=== PATIENT | female | born 1965 | race Caucasian/White ===

== ENCOUNTER 2024-10-28 23:59 | Inpatient (IN) | payer OTHER, SELFPAY ==
[2024-10-28 18:17] VITALS: BP 151/96
[2024-10-28 18:33] LABS: % Basophils 0.5 % (0-2); % Eosinophils 0.2 % (0-6); % Immature Granulocytes 0.3 % (0-0.5); % Lymphocytes 12.4 % (20.5-51.1); % Monocytes 3.9 % (1.7-9.3); % Neutrophils 82.7 % (42.2-75.2); Absolute Basophils 0.1 10^3/uL (0-0.2); Absolute Lymphocytes 1.4 10^3/uL (1.2-3.4); Absolute Monocytes 0.4 10^3/uL (0.1-0.6); Absolute Neutrophils 9.2 10^3/uL (1.4-6.5); Hematocrit 42.8 % (37.0-47.0); Hemoglobin 15.3 g/dL (12.0-16.0); Mean Corp Hgb Conc. 35.7 g/dL (33.0-37.0); Mean Corpuscular Hgb 32.3 pg (27.0-31.0); Mean Corpuscular Volume 90.5 fL (81.0-99.0); Mean Platelet Volume 8.7 fL (7.4-10.4); Nucleated Red Blood Cells % 0 %; Platelet Count 219 10^3/uL (130-400); Red Blood Cell Count 4.73 10^6/uL (4.20-5.40); Red Cell Dist. Width 11.9 % (11.5-14.5); White Blood Cell Count 11.2 10^3/uL (4.8-10.8)
[2024-10-28 18:47] LABS: ALT (SGPT) 64 U/L (0-35); AST (SGOT) 65 U/L (14-36); Albumin 4.7 g/dl (3.5-5.0); Alkaline Phosphatase 138 U/L (38-126); Blood Urea Nitrogen 12 mg/dl (7-17); Calcium 9.4 mg/dl (8.4-10.2); Carbon Dioxide 19 mmol/L (22-30); Chloride 98 mmol/L (98-107); Glucose 364 mg/dl (70-99); Lipase 136 U/L (23-300); Potassium 4.4 mmol/L (3.5-5.1); Sodium 132 mmol/L (135-145); Total Bilirubin 0.8 mg/dl (0.2-1.3); Total Protein 7.4 g/dl (6.3-8.2); eGFR > 60.00
--- NOTE | 2024-10-28 19:53 | ED.GENMED ---
History of Present Illness
General
Chief Complaint: Abdominal Pain
Source: patient
Exam Limitations: none
Time Seen by Provider: 10/28/24 19:05
History of Present Illness
History of Present Illness:
This is a 59 year old female that comes in with c/o left sided abd pain. States that she has severe pain in the left lower abd and the center. States that this started at 1pm and has been constant. State that she had coffee and cookies and this
cause the pain to be severe. States that she has 2 normal BM's today. States that she feels like her urine is thick when it comes out. States that she is nauseated and vomiting once. Denies any fever, chills, chest pain, SOB, diarrhea, headache,
dizziness.
Past History
Past History
ED Past Medical History: None, NIDDM (II but states that she keeps forgetting to take her Metformin) and Other (Partial factor 5 Liden, renal calculus); Negative Asthma, HTN or Hypercholesterolemia
ED Past Surgical History: (X 2) and Urological (Ureteral stent, )
Social History
Tobacco: Non-smoker
Alcohol: Occasional (wine 1-2 glasses)
Personal:
Living: with family
Review of Systems
Review of Systems
All Other Systems: ROS reviewed and negative except as documented in HPI and ROS
Constitutional: Reports no symptoms; Denies fever or chills
EENT: Reports no symptoms
Respiratory: Reports no symptoms; Denies cough or trouble breathing
Cardiac: Reports no symptoms; Denies chest pain
ABD/GI: Reports abdominal pain (Left sided), nausea and vomiting; Denies diarrhea
: Reports other (urine feels Thick); Denies dysuria, frequency or urgency
Musculoskeletal: Reports no symptoms
Skin: Reports no symptoms
Neurological: Reports no symptoms; Denies dizzy or headache
Psychiatric: Reports no symptoms
Phy Exam
General Physical Exam
General Presentation: mild distress
General age: appears stated age
General Skin: warm and dry
General Habitus: normal
General Mental: alert
General Hydration: appears well hydrated
ENT Exam
ENT Exam: TM's normal, pharynx normal and neck supple
Eye Exam
Eye Exam: EOMI
Cardiovascular Exam
Cardiovascular Exam: regular rate/rhythm, no edema, no murmur and normal peripheral pulses
Pulmonary Exam
Pulmonary Exam: lungs clear, no respiratory distress, no rales, chest non tender, no crackles, no rhonchi, no wheezing and no cough
Gastrointestinal Exam
Gastrointestinal Exam: normal bowel sounds, soft, no organomegaly, no pulsatile mass, non distended and tender (Left sided tenderness with palpation)
Musculoskeletal Exam
Musculoskeletal Exam: full ROM and no edema
Skin Exam
Skin Exam: normal color, warm/dry, no rash and no petechia
Psychiatric Exam
Psychiatric Exam: normal mood/affect
Course
Orders/Labs/Results
Orders:
Orders
10/28/24 18:07
Electrocardiogram (*1) Urgent
Reason for Study: Abdominal Pain
EKG- Treatment ONCE
10/28/24 18:24
Complete Blood Count/With Diff Urgent
Comprehensive Metabolic Panel Urgent
Lipase Urgent
10/28/24 19:52
0.9% Sodium Chloride 1000 ml [Nss] 1,000 ml IV BOLUS
HYDROmorphone [Dilaudid] 0.5 mg IV NOW STA
Ketorolac [Toradol] 30 mg IV NOW STA
10/28/24 19:54
CT Abd/pelvis W Iv Cont Urgent
Comment:
Reason For Exam: Left sided abd pain
10/28/24 21:07
Urinalysis Reflex To Culture Urgent
Date Specimen was Collected: 10/28/24
Time Specimen was Collected: 21:02
Urine Microscopic Reflex Cult Urgent
Urine Culture Urgent
RAVINDRA Source: U
Specimen Description:
Date Specimen was Collected: 10/28/24
Time Specimen was Collected: 21:02
10/28/24 22:47
CefTRIAXone [Rocephin] 1,000 mg IV NOW STA
10/28/24 22:56
Acetaminophen [Tylenol] 1,000 mg PO NOW STA
10/28/24 23:08
METFORMIN HCl [Glucophage] 1,000 mg PO NOW STA
10/28/24 23:47
Admit/Transfer Patient As Directed
Co-Sign Provider:
Level of Care: Inpatient admission
Assign to:: IMU- Intermediate Care
Physician / Group: Shaquille
Diagnosis: Pyelonephritis, Sepsis
Reason for Hospitalization: Pyelonephritis, Sepsis
Expected length of stay greater than two midnights?: Yes
ELOS- Estimated Length of Stay in days: 3
I certify the patient meets the requirements for IP care: Yes
0.9% Sodium Chloride 1000 ml [Nss] 1,500 ml IV BOLUS
PRN Pain Medication Management As Directed
May give lesser potent ordered pain med per pt: Yes
preference::
Protocol:: Medication orders for pain may be administered in a
manner that supports deferring to patient preference
when the pt is:
- Requesting an ordered lesser potent pain medication.
Least to most potent pain medications are defined
as: acetaminophen < NSAID < tramadol < opioids
(morphine, oxycodone, hydromorphone).
- Requesting a lesser dose of the same medication IF
ORDERED.
- Requesting a less intrusive route of administration
if both routes are prescribed by the provider (PO <
IV).
10/28/24 23:48
Code Status As Directed
Resuscitation Status: Full Code
10/28/24 23:54
COVID-19 Antigen Urgent
Source: Nasal Swab
Lactic Acid Urgent
Influenza A+B Rapid Molecular Urgent
RAVINDRA Source: Nasal Swab
Specimen Description:
10/29/24 01:44
0.9% Sodium Chloride 1000 ml [Nss] 1,000 ml IV 150 mls/hr
Acetaminophen [Tylenol] 650 mg PO Q4HPRN PRN
Dextrose 50%-Water [Dextrose 50% Syringe] 12.5 grams IV [id number] PRN
Glucagon [GlucaGen] 1 mg IM PRN PRN
HYDROmorphone [Dilaudid] 0.5 mg IV Q4HPRN PRN
Ketorolac [Toradol] 15 mg IV Q6HPRN PRN
Ondansetron Injectable [Zofran] 4 mg IV Q6HPRN PRN
10/29/24 01:44
UROLOGY CONSULT Routine
Consulting Provider: Trev James
Was physician already notified: Yes
Comment: Pyelonephritis, Sepsis
TSH Reflex To Free T4 Routine
Activity As Directed
Activity Level: Ambulate
With Assistance
Bedside Glucose Monitoring As Directed
Frequency: AC&HS
Additional Instructions:: Change to q6h if pt on TPN, tube feeding or not eating
EKG with chest pain [ECG as needed] As Directed
ECG as needed for:: Chest Pain
I/O [Intake/ Output] As Directed
Frequency: Per unit guidelines
Pneumatic Compression Sleeves As Directed
Type: Knee high
Strain Urine As Directed
Vital Signs As Directed
Frequency: Per unit guidelines
Weight As Directed
Frequency: Daily
Oxygen Therapy [O2 Therapy] [RESP] Routine
Titrate/Wean O2 to maintain O2 sat greater than (%): 94
DX Deep Vein Thrombosis Video Routine
10/29/24 06:00
EKG [Electrocardiogram (*1)] IN AM
Reason for Study: Chest Pain
NPO
Allow oral meds: Yes
Allow clear liquids: Sips of Clears
Basic Metabolic Panel IN AM
Complete Blood Count/No Diff IN AM
Glycohemoglobin (HgbA1c) IN AM
Magnesium IN AM
10/29/24 07:30
Insulin Aspart Corrective Mod [Novolog Flexpen-Moderate Resistance] See Protocol SC AC
10/29/24 08:00
Pantoprazole [Protonix IV] 40 mg IV DAILY
Tamsulosin [Flomax] 0.4 mg PO DAILY
10/30/24 00:01
CefTRIAXone [Rocephin] 1,000 mg IV Q24H
Abnormal Lab Results
10/28/24 10/28/24 10/28/24
18:24 21:07 23:54
WBC 11.2 H 10^3/uL
(4.8-10.8)
MCH 32.3 H pg
(27.0-31.0)
Absolute Neuts (auto) 9.2 H 10^3/uL
(1.4-6.5)
Neutrophils % 82.7 H %
(42.2-75.2)
Lymphocytes % 12.4 L %
(20.5-51.1)
Sodium 132 L mmol/L
(135-145)
Carbon Dioxide 19 L mmol/L
(22-30)
Creatinine 0.5 L mg/dL
(0.6-1.0)
Glucose 364 H mg/dl
(70-99)
Lactic Acid 2.3 H mmol/L
(0.7-2.0)
AST 65 H U/L
(14-36)
ALT 64 H U/L
(0-35)
Alkaline Phosphatase 138 H U/L
(38-126)
Urine Ketones 3+ A
(Negative)
Ur Occult Blood Reflex 4+ A
(Negative)
Leukocyte Esterase Rfl 1+ A
(Negative)
Urine RBC 26-30 A /HPF
(0-2)
Urine WBC (Reflex) 21-25 A /HPF
(0-5)
Urine Bacteria (Reflex) Many A
(Negative)
Urine Glucose 3+ A
(Negative)
10/28/24 18:24
10/28/24 18:24
WBC very slightly elevated. Sodium slightly low. Carbon dioxide slightly low. Hyperglycemia. AST/ALT mildly elevated. Alk phos elevation. Lipase normal at 136, Anion gap 15, Lactic acid 2.3, COVID and influenza Negative.
Vital Signs
Initial and Last Documented VS:
Initial Vital Signs
Temp Pulse Resp BP Pulse Ox
98.1 F 99 16 151/96 98
10/28/24 18:17 10/28/24 18:17 10/28/24 18:17 10/28/24 18:17 10/28/24 18:17
Last Documented Vital Signs
Temp Pulse Resp BP Pulse Ox
103.2 F H 129 26 148/70 95
10/29/24 00:00 10/29/24 01:00 10/29/24 01:00 10/29/24 01:00 10/29/24 01:00
MDM/Problems Addressed
Differential Diagnosis Includes:
Diverticulitis, Renal calculus
MDM/Problems Addressed:
This is a 59 year old female that comes in with c/o left sided abd pain. States that this started at 1pm and is constant. States that she is in severe pain.
Will get labs, Urine, Give IV fluids and medicate for pain.
Back into see patient. Explained that her CT is negative for any obvious renal calculus but there may have been a stone that has passed. Patient does have a UTI. Patient now has a fever of 103. Patient states that she felt like this when she was
septic in the past. Will admit patient. Will also test for COVID and Influenza. Hospitalist notified.
Chronic conditions affecting care:
renal calculus
Acute Exacerbation and/or Progression of Chronic Illness:
renal calculus
*Radiology
Radiology exam reviewed: radiology read reviewed (CT-Delayed left renal excretion with urine/contrast level in the left renal pelvis and lack of contrast opacification of the mildly dilated left ureter. No Definitive radiopaque calculus along the
course of the left ureter are seen layering in the urinary bladder. Findings may represent obstructive), all reviewed NAD by ED Provider (CT cont-uropathy on the basis of a recentlypassed calculus. Obstructive uropathy at the level of the left
ureterovesical junction of other etiology such as a lesion cannot be excluded on the basis of this study. Mild bilateral perinephric stranding, left greater than right. Cholelithiasis. ) and other (CT cont- Mild hepatosplenomegaly with diffuse
fatty liver. )
*Pulse Oximetry
Patient hypoxic: no
*EKG
Interpreted by ED Provider?: Yes
Heart Rate: 88
Rate: normal
Rhythm: sinus
[place]: normal axis
Interval: normal interval
QRS Pattern: normal QRS
Ischemia: no ischemia
*Library Cataloging Technician Interpretation
Rate: tachycardiac
Heart Rate: 125
Rhythm: sinus tachycardia
*Critical Care Note
Total Time (30-74mins, 75-104mins- exclusive of procedures): Not Applicable
ED Attending Note
-
Portions of this chart may have been created with voice recognition software.� Occasional wrong word or��sound alike� substitutions may have occurred due to the inherent limitations of voice recognition software.
Discharge Plan
Departure
Patient Disposition: Admit
Date of Disposition: 10/28/24
Time of Disposition: 22:50
Admit to: Med/Surg
Presentation/result/management discussed w/ accepting MD/DO: Hospitalist
Patient with high blood pressure during this ER visit?: Yes
Condition: Good
Covid-19: Not Applicable
Discharge Problem:
Urinary tract infection, Fever, Acute hyperglycemia
Interventions
Interventions:
*Risk Screen - Suicide Last Done: 10/28/24 18:17
*General Assessment Last Done: 10/28/24 19:11
*Neglect/Abuse Screening Last Done: 10/28/24 18:17
*ED COVID-19 Vaccine History Last Done: 10/28/24 19:11
DQ-Wskpse-Hcrasljloi Assessment Last Done: 10/28/24 19:11
[2024-10-28] MEDS: NSS 1000 IV (20:03)
[2024-10-28] MEDS: DILAUDID 0.5 MG IV (20:03)
[2024-10-28] MEDS: TORADOL 30 MG IV (20:03)
[2024-10-28 20:25] VITALS: BP 169/109
[2024-10-28 21:19] LABS: Urine Albumin Negative (Neg - Trace); Urine Bilirubin Negative (Negative); Urine Character Slightly Cloudy (Clear); Urine Color Straw; Urine Glucose 3+ (Negative); Urine Ketone 3+ (Negative); Urine Leukocyte 1+ (Negative); Urine Nitrite Negative (Negative); Urine Occult Blood 4+ (Negative); Urine Specific Gravity 1.015 (<1.030); Urine Urobilinogen Negative (Neg - 1+)
[2024-10-28 21:35] LABS: Urine Red Blood Cell 26-30 /HPF (0-2)
[2024-10-28 21:36] LABS: Urine Bacteria Many (Negative); Urine White Cell 21-25 /HPF (0-5)
--- NOTE | 2024-10-28 23:58 | HPS.HSE ---
Family Physician
-
Family Physician: Zaheer Dill
Chief Complaint
-
Abd Pain, N/V
History of Present Illness
Patient is a 59y F with PMH significant for nephrolithiasis, hypertension and obesity who presents to ED complaining of abdominal pain, dysuria and N/V. Patient states that she developed L sided abdominal pain this AM shortly after eating some
cookies and drinking a cup of coffee. She has had excessive thirst / water intake and increased frequency / urgency of urination x several days. Today she noted 'discomfort' with urination and felt chills each time she urinated. She had nausea
with multiple episodes of non-bloody emesis today. She has been unable to tolerate much PO intake today and has had emesis each time she has tried.
Patient states that she had recent exam with her PCP and was newly diagnosed with DM and dyslipidemia.
She was prescribed metformin - but has not yet started taking it.
They discussed Ozempic therapy, but this has yet to be approved.
Medical History
Past Medical History
Past Medical History: Reports Other
Additional Past Medical History:
Hypertension
DM-II
Dyslipidemia
Obesity
Nephrolithiasis
MASLD
Factor V Leiden (heterozygous)
Past Surgical History: Reports Other
Additional Past Surgical History:
Ureteroscopy / Stent x 2
x 2
Tubal Ligation
Social History
Tobacco: Non-smoker
Alcohol: Occasional
Drug: None
Personal:
Living: With Family
Family History
Family History: Other (DVT / PE / Factor V Leiden)
Allergies / Home Medications
Allergies reflects when Allergies were last updated in [facility].
Home Medications with original date entered in [facility]
Allergy/Medication List:
Allergies
Allergy/AdvReac Type Severity Reaction Status Date / Time
No Known Allergies Allergy Verified 10/28/24 18:17
Home Medications
amlodipine 5 mg tablet 5 mg PO DAILY #30 tabs 11/22/19
atorvastatin 20 mg tablet 20 mg PO DAILY 10/28/24
cholecalciferol (vitamin D3) 50 mcg (2,000 unit) tablet 50 mcg PO DAILY 10/28/24
magnesium 250 mg tablet 250 mg PO DAILY 10/28/24
Review of Systems
-
History Source: Patient
A 12 point ROS was completed and negative except as noted: Yes
Constitutional: Reports Fatigue and Chills; Denies Fever
EENT: Denies Sore Throat
Respiratory: Denies Cough or Trouble Breathing
Cardiac: Denies Chest Pain or Palpitations
Abdomen/GI: Reports Abdominal Pain, Nausea, Vomiting and Anorexia; Denies Diarrhea, Bloody Stools or Black Stools
: Reports Dysuria, Frequency, Flank Pain and Urgency
Musculoskeletal: Denies Joint Pain or Edema
Neurological: Denies Dizzy or Headache
Psych: Denies Depression or Anxiety
Physical Exam
Vital Signs
Vital Signs
Temp Pulse Resp BP Pulse Ox
100.2 F 105 16 169/109 91
10/28/24 20:25 10/28/24 20:25 10/28/24 18:17 10/28/24 20:25 10/28/24 20:25
Physical Exam
General: Other (59y F in mild distress due to pain.)
HEENT: Other (Dry MM. Thick neck.)
Respiratory: Clear; No Wheezes, Rales or Rhonchi
Cardiac: S1/S2 and Tachycardia; No Murmur
GI: Other (Obese, mild LLQ tenderness without rebound / guarding.)
Genito-urinary: Costovertebral angle tend (Left.)
Musculoskeletal: No Clubbing, No Cyanosis and No Edema
Neuro: AO x 3
Laboratory Results
-
10/28/24 18:24
10/28/24 18:24
Laboratory Results
Total Bilirubin 0.8 mg/dl (0.2-1.3) 10/28/24 18:24
AST 65 U/L (14-36) H 10/28/24 18:24
ALT 64 U/L (0-35) H 10/28/24 18:24
Alkaline Phosphatase 138 U/L (38-126) H 10/28/24 18:24
Lipase 136 U/L (23-300) 10/28/24 18:24
Impression/Plan
-
A/P: Patient is a 59y F with PMH significant for nephrolithiasis, DM-II and obesity who presents to ED complaining of abdominal pain with N/V.
Left Pyelonephritis
Sepsis secondary to the above
- Admit for further evaluation and treatment.
- Patient presents with leukocytosis, tachycardia and UA consistent with infection.
- CT with stranding and ureteral dilation c/w pyelonephritis +/- stone.
- Aggressive IVF support.
- IV ceftriaxone pending culture data.
- Follow for clinical improvement.
Nephrolithiasis
- Clinical history suspicious for current / passed stone on the L.
- CT done this evening with no definitive stone visible in the L collecting system.
- Check KUB to confirm.
- Tamsulosin, strain urine, etc.
- Urology evaluation for additional recommendations.
DM-II - Uncontrolled / Newly Diagnosed
- Recent symptoms of polyuria and polydipsia.
- Suspect degree of acute hyperglycemia secondary to infection / sepsis.
- Has not yet started any DM medications.
- Begin SSI coverage for now.
- Aggressive IVF support as noted above.
- Check A1C.
Benign Hypertension
- BP elevated likely in part due to acute pain, etc.
- Continue current amlodipine with holding parameters.
MASLD
- Chronically abnormal LFTs - unchanged from baseline.
Factor V Leiden
DVT Prophylaxis
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
- Subcut heparin for prophylaxis.
Code Status: Full
[2024-10-29] VITALS (10 sets, daily range): BP systolic 127–158; BP diastolic 66–90
[2024-10-29] MEDS: NSS 1500 IV (00:06)
[2024-10-29] MEDS: TYLENOL 1000 MG PO (00:07)
[2024-10-29] MEDS: ROCEPHIN 1000 MG IV ×2 (00:08→23:16)
[2024-10-29 00:21] LABS: Lactic Acid 2.3 mmol/L (0.7-2.0)
[2024-10-29 00:35] LABS: COVID-19 Antigen Negative (Negative)
[2024-10-29] MEDS: NovoLIN R Flexpen 4 UNITS SC (00:48)
[2024-10-29] MEDS: NSS 1000 IV ×3 (01:55→17:35)
[2024-10-29] MEDS: DILAUDID 0.5 MG IV (02:15)
[2024-10-29] MEDS: TYLENOL 650 MG PO ×4 (04:11→21:28)
[2024-10-29 06:48] LABS: Hematocrit 39.1 % (37.0-47.0); Hemoglobin 13.8 g/dL (12.0-16.0); Mean Corp Hgb Conc. 35.3 g/dL (33.0-37.0); Mean Corpuscular Hgb 32.5 pg (27.0-31.0); Mean Platelet Volume 8.8 fL (7.4-10.4); Platelet Count 178 10^3/uL (130-400); Red Blood Cell Count 4.25 10^6/uL (4.20-5.40); Red Cell Dist. Width 12.2 % (11.5-14.5); White Blood Cell Count 17.1 10^3/uL (4.8-10.8)
[2024-10-29 07:11] LABS: Blood Urea Nitrogen 16 mg/dl (7-17); Calcium 8.4 mg/dl (8.4-10.2); Carbon Dioxide 19 mmol/L (22-30); Chloride 102 mmol/L (98-107); Glucose 303 mg/dl (70-99); Magnesium 1.5 mg/dl (1.6-2.3); Sodium 133 mmol/L (135-145); eGFR > 60.00
--- NOTE | 2024-10-29 07:30 | W.PN.UPDATE ---
Update Note
Progress Note Update
Left renal colic
Leukocytosis
Left hydronephrosis w/ perinephric fat stranding
UTI - ascending infection indicative of pyelonephritis
WBC 17
Cr WNL
UA +WBCs/RBCs, many bacteria
UCx pending
CTAP w/ IV contrast => delayed left renal excretion with urine/contrast level in the left renal pelvis and lack of contrast opacification of the mildly dilated left ureter.
No definitive radiopaque calculus along the course of the left ureter are seen layering in the urinary bladder.
Findings may represent obstructive uropathy on the basis of a recently passed calculus.
Obstructive uropathy at the level of the left ureterovesical junction of other etiology such as a lesion cannot be excluded on the basis of this study.
Mild bilateral perinephric stranding, left greater than right.
Plan
- IV antibiotics pending UCx S/S
- BG control given significant hyperglycemia
- No indication for uro-surgical intervention - CT imaging demonstrates no obstructing ureteral stones, Cr WNL
Urology following, please TT w/ questions.
[2024-10-29 07:42] LABS: TSH Reflex To Free T4 1.46 uIU/ml (0.47-4.68)
[2024-10-29 07:46] LABS: Glucose - Point of Care 309 mg/dl (70-99)
[2024-10-29 09:11] LABS: Glycohemoglobin (HgbA1c) 9.5 % (4.0-5.6)
[2024-10-29] MEDS: NORVASC 5 MG PO (09:28)
[2024-10-29] MEDS: FLOMAX 0.4 MG PO (09:28)
[2024-10-29] MEDS: HEPARIN 5000 UNITS SC ×2 (09:29→23:16)
[2024-10-29] MEDS: PROTONIX IV 40 MG IV (09:30)
[2024-10-29] MEDS: NSS (PRESERVATIVE FREE) 10 ML IV (09:31)
[2024-10-29] MEDS: NOVOLOG FLEXPEN-MODERATE RESISTANCE 3 UNITS SC (09:41)
[2024-10-29] MEDS: MAGNESIUM SULFATE 100 IV (10:45)
[2024-10-29] MEDS: NOVOLOG FLEXPEN-MODERATE RESISTANCE SC (11:38)
--- NOTE | 2024-10-29 12:19 | CM ---
Chart reviewed. Patient here for sepsis s/t left pyelonephritis. Patient's daughter also at bedside. Patient is alert and oriented. Patient is independent. Does not own any DME. She lives at home with her and children. She lives in a [place]
home, but has a 1st floor set up, she does not need to go upstairs. 3 PRABHU. She has an active PCP and pharmacy. She drives. 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 Denies any +SDOHs.
ANTICIPATED DISCHARGE PLAN: Discharge to home with family, once medically cleared.
--- NOTE | 2024-10-29 13:30 | PTCARENOTE ---
Received pt from ED via bed. Bed placed in room. Pt able to stand up at bedside. Pt c/o right hip pain, see MAR. Family at bedside. AAOx3. Pt stated, 'When will the physician be here? They have multiple doctors with them and no one has seen me'
while pointing to roommates bed and 'When will the doctor be here?' and 'Is the doctor that admitted me going to see me or just the urologist?'. Pt informed of hospitalist name and they are aware that they are on the unit. Vital signs obtained.
Assessed and oriented to room. Call garcia placed at bedside. Pt verbalized understanding of call garcia. Will cont to monitor.
--- NOTE | 2024-10-29 14:31 | PTCARENOTE ---
HR elevated, 110's-120's. Pt c/o feeling warm, temperature obtained, stable. MD made aware of tachycardia, no new orders provided.
--- NOTE | 2024-10-29 14:41 | W.PN.HOSP.TC ---
Today's Communication/Plan
-
f/u cultures
cont iv abx, broaden if decompensates
ivf
urology recs
Assessment / Plan
Assessment / Plan
Physical Exam
General: Other (59y F in mild distress due to pain.)
HEENT: Other (Dry MM. Thick neck.)
Respiratory: Clear; No Wheezes, Rales or Rhonchi
Cardiac: S1/S2 and Tachycardia; No Murmur
GI: Other (Obese, mild LLQ tenderness without rebound / guarding.)
Genito-urinary: Costovertebral angle tend (Left.)
Musculoskeletal: No Clubbing, No Cyanosis and No Edema
Neuro: AO x 3
A/P: Patient is a 59y F with PMH significant for nephrolithiasis, DM-II and obesity who presents to ED complaining of abdominal pain with N/V.
Left Pyelonephritis
Severe Sepsis secondary to the above
- Admit for further evaluation and treatment.
- Patient presents with leukocytosis, tachycardia and UA consistent with infection.
- CT with stranding and ureteral dilation c/w pyelonephritis
- Aggressive IVF support.
- IV ceftriaxone pending culture data.
- F/u Blood cultures, urine cultures
- Follow for clinical improvement.
Left hydronephrosis w/ perinephric fat stranding
�No clear evidence of calculus along the course of the left ureter
� May represent obstructive uropathy on the basis of a recently passed calculus versus reflux
� See plan above for pyelonephritis
� Monitor serum creatinine
� Continue IV antibiotics
� Urology on board
� No indication for repeat surgical intervention at this time
� Urology will closely follow for any changes
DM-II - Uncontrolled / Newly Diagnosed
- Recent symptoms of polyuria and polydipsia.
- Suspect degree of acute hyperglycemia secondary to infection / sepsis.
- Has not yet started any DM medications. Desires showed Ozempic as well
- Begin SSI coverage for now.
- Aggressive IVF support as noted above.
- Hemoglobin A1c 9.5
� Can restart metformin once serum creatinine appears to be stable, ready to be discharged
� Dietary consult
� Follow-up PCP outpatient after dietary modification, metformin initiation
Benign Hypertension
- BP elevated likely in part due to acute pain, etc.
- Continue current amlodipine with holding parameters.
Hypomagnesemia
� Monitor and replete
MASLD
- Chronically abnormal LFTs - unchanged from baseline.
Factor V Leiden
DVT Prophylaxis
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
- Subcut heparin for prophylaxis.
Code Status: Full
Anticipated Discharge: > 48 hours
Subjective/Interval History
-
Date of Service: October 29, 2024
Febrile episode this morning
Objective Data
-
Labs:
Laboratory Results
10/29/24
06:39
WBC 17.1 H
Hgb 13.8
Hct 39.1
Plt Count 178
Sodium 133 L
Potassium 4.0
Chloride 102
Carbon Dioxide 19 L
BUN 16
Creatinine 0.6
Glucose 303 H
Calcium 8.4
Vital Signs:
Vital Signs
Temp Pulse Resp BP Pulse Ox
98.8 F 112 18 152/81 96
10/29/24 13:43 10/29/24 12:49 10/29/24 12:49 10/29/24 12:49 10/29/24 12:49
I&O
10/28/24 10/29/24 10/30/24
06:59 06:59 06:59
Intake Total 1740 / 1740
Output Total 200 / 200
Balance 1540 / 1540
Review of Systems
-
History Source: Patient
All other systems: Not reviewed unless documented
Data Reviewed
-
Diagnostic Radiology: Report Reviewed by me
Medical Tests (Nuc Med, Echo etc): Image personally visualized and interpreted
Labs: Labs Reviewed by me
[2024-10-29] MEDS: TORADOL 15 MG IV ×2 (14:52→21:28)
--- NOTE | 2024-10-29 15:12 | PTCARENOTE ---
Pt stated, 'My dad used to work here so I grew up in this hospital and back in those days when a patient was admitted the doctor would be up and give them a plan of care. You would not be sitting around while nothing is happening'. Pt informed that
doctors are rounding.
--- NOTE | 2024-10-29 16:00 | W.PN.URO.CBU ---
Today's Communication / Plan
-
- CT imaging reviewed - no evidence of left ureteral stones, fat stranding indicative of pyelonephritis
- No indication for uro-surgical intervention
- IV antibiotics pending UCx S/S
- BG optimization given significant hyperglycemia
D/w patient and spouse this afternoon.
Assessment / Plan
-
Left renal colic
Leukocytosis
Mild left renal collecting system and ureteral dilatation w/ perinephric fat stranding
UTI - ascending infection indicative of left pyelonephritis
WBC 17
Cr WNL
UA +WBCs/RBCs, many bacteria
UCx pending
BCx pending
CTAP w/ IV contrast =>
Delayed left renal excretion with urine/contrast level in the left renal pelvis and lack of contrast opacification of the mildly dilated left ureter.
No definitive radiopaque calculus along the course of the left ureter
Mild bilateral perinephric stranding, left greater than right.
Diagnosis
-
Date of Service: October 30, 2024
-
Patient Diagnosis:
Left renal colic
Leukocytosis
Mild left renal collecting system and ureteral dilatation w/ perinephric fat stranding
UTI - ascending infection indicative of left pyelonephritis
Subjective
-
Notes persistent left abdominal pain - albeit improved from admission.
Fevers improving.
No significant appetite.
Denies dysuria.
12/2019: obstructing ureteral stone and urosepsis s/p stent placement (and subsequent ureteroscopy).
Objective
-
Vital Signs
Temp Pulse Resp BP Pulse Ox
99.4 F 109 17 147/86 97
10/30/24 07:40 10/30/24 07:40 10/30/24 07:40 10/30/24 07:40 10/30/24 07:40
Intake and Output
10/29/24 10/30/24 10/31/24
06:59 06:59 06:59
Intake Total 1740 / 1740 960 / 960
Output Total 200 / 200 700 / 700
Balance 1540 / 1540 260 / 260
Intake:
Oral fluids 240 / 240 360 / 360
IV fluids (Total) 1500 / 1500 600 / 600
NSS 1500 / 1500
Output:
Urine, Voided 200 / 200 700 / 700
Other:
Number of approximated MODERATE 2
amounts of urine
Physical Exam
-
General - well developed, well nourished, no acute distress
Abdomen - soft, non-tender, + left CVAT
Genitalia - normal
Extremities - no clubbing, no cyanosis, no edema
Care Review
Data Reviewed
Discussed with: Hospitalist and Family
CT Scan: Report Pers Reviewed and Image Pers Reviewed
Total Time Spent with Patient (in minutes): 35
[2024-10-29] MEDS: HEPARIN SC (16:40)
[2024-10-29 16:49] LABS: Glucose - Point of Care 272 mg/dl (70-99)
[2024-10-29] MEDS: NOVOLOG FLEXPEN-MODERATE RESISTANCE 5 UNITS SC (17:09)
[2024-10-29 21:45] LABS: Glucose - Point of Care 262 mg/dl (70-99)
[2024-10-29] MEDS: STERILE WATER FOR INJECTION 10 ML IV (23:15)
[2024-10-30] VITALS (7 sets, daily range): BP systolic 117–156; BP diastolic 74–96; BMI 45.4
[2024-10-30] MEDS: NSS 1000 IV ×3 (01:39→15:48)
[2024-10-30] MEDS: TYLENOL 650 MG PO ×3 (01:39→19:48)
[2024-10-30] MEDS: TORADOL 15 MG IV ×3 (04:08→23:13)
[2024-10-30 07:42] LABS: Glucose - Point of Care 224 mg/dl (70-99)
--- NOTE | 2024-10-30 08:03 | W.PN.URO.CBU ---
Today's Communication / Plan
-
no new gu intervention
Assessment / Plan
-
Left renal colic
Leukocytosis
Mild left renal collecting system and ureteral dilatation w/ perinephric fat stranding
UTI - ascending infection indicative of left pyelonephritis will observe but if no improvement will need reimaging
WBC 17
Cr WNL
UA +WBCs/RBCs, many bacteria
UCx pending
BCx pending
CTAP w/ IV contrast =>
Delayed left renal excretion with urine/contrast level in the left renal pelvis and lack of contrast opacification of the mildly dilated left ureter.
No definitive radiopaque calculus along the course of the left ureter
Mild bilateral perinephric stranding, left greater than right.
Diagnosis
-
Date of Service: October 30, 2024
-
Patient Diagnosis:
Post Op Day:
Patient Diagnosis:
Left renal colic
Leukocytosis
Mild left renal collecting system and ureteral dilatation w/ perinephric fat stranding
UTI - ascending infection indicative of left pyelonephritis
Subjective
-
fever last pm but overall much improved
Objective
-
Vital Signs
Temp Pulse Resp BP Pulse Ox
99.4 F 109 17 147/86 97
10/30/24 07:40 10/30/24 07:40 10/30/24 07:40 10/30/24 07:40 10/30/24 07:40
Intake and Output
10/29/24 10/30/24 10/31/24
06:59 06:59 06:59
Intake Total 1740 / 1740 960 / 960
Output Total 200 / 200 700 / 700
Balance 1540 / 1540 260 / 260
Intake:
Oral fluids 240 / 240 360 / 360
IV fluids (Total) 1500 / 1500 600 / 600
NSS 1500 / 1500
Output:
Urine, Voided 200 / 200 700 / 700
Other:
Number of approximated MODERATE 2
amounts of urine
Review of Systems
-
Constitutional: Fever and Fatigue
: Flank Pain
Physical Exam
-
General - well developed, well nourished, no acute distress
Chest - clear bilaterally
Abdomen - soft, non-tender, positive bowel sounds, no CVAT, no incisional pain or distention
Genitalia - normal
Rectal - normal
Skin - warm & dry with no rash
Neuro - AOx3, no motor deficits
Extremities - no clubbing, no cyanosis, no edema
Incision - clean, dry
Dressing - clean, dry, intact
Care Review
Data Reviewed
Discussed with: Nursing
CT Scan: Image Pers Reviewed
[2024-10-30] MEDS: PROTONIX IV 40 MG IV (08:08)
[2024-10-30] MEDS: FLOMAX 0.4 MG PO (08:08)
[2024-10-30] MEDS: NSS (PRESERVATIVE FREE) 10 ML IV (08:08)
[2024-10-30] MEDS: NORVASC 5 MG PO (08:09)
[2024-10-30] MEDS: HEPARIN SC ×3 (08:09→15:34)
[2024-10-30] MEDS: NOVOLOG FLEXPEN-MODERATE RESISTANCE 3 UNITS SC (08:41)
[2024-10-30 09:40] LABS: Hematocrit 35.3 % (37.0-47.0); Hemoglobin 12.4 g/dL (12.0-16.0); Mean Corp Hgb Conc. 35.1 g/dL (33.0-37.0); Mean Corpuscular Hgb 32.9 pg (27.0-31.0); Mean Corpuscular Volume 93.6 fL (81.0-99.0); Mean Platelet Volume 9.3 fL (7.4-10.4); Platelet Count 176 10^3/uL (130-400); Red Blood Cell Count 3.77 10^6/uL (4.20-5.40); White Blood Cell Count 13.4 10^3/uL (4.8-10.8)
[2024-10-30 10:22] LABS: ALT (SGPT) 42 U/L (0-35); AST (SGOT) 37 U/L (14-36); Albumin 3.4 g/dl (3.5-5.0); Alkaline Phosphatase 106 U/L (38-126); Blood Urea Nitrogen 13 mg/dl (7-17); Calcium 8.7 mg/dl (8.4-10.2); Carbon Dioxide 18 mmol/L (22-30); Chloride 102 mmol/L (98-107); Estimated Creatinine Clearance > 125 ml/min; Glucose 255 mg/dl (70-99); Potassium 3.8 mmol/L (3.5-5.1); Sodium 131 mmol/L (135-145); Total Bilirubin 1.1 mg/dl (0.2-1.3); eGFR > 60.00
[2024-10-30 12:59] LABS: Glucose - Point of Care 260 mg/dl (70-99)
--- NOTE | 2024-10-30 13:39 | W.PN.HOSP.TC ---
Today's Communication/Plan
-
Follow-up cultures
Continue antibiotics
Abdominal ultrasound
IV fluids
Monitor sodium
Assessment / Plan
Assessment / Plan
Physical Exam
General: Other (59y F in mild distress due to pain.)
HEENT: Other (Dry MM. Thick neck.)
Respiratory: Clear; No Wheezes, Rales or Rhonchi
Cardiac: S1/S2 and Tachycardia; No Murmur
GI: Other (Obese, mild LLQ tenderness without rebound / guarding.)
Genito-urinary: Costovertebral angle tend (Left.)
Musculoskeletal: No Clubbing, No Cyanosis and No Edema
Neuro: AO x 3
A/P: Patient is a 59y F with PMH significant for nephrolithiasis, DM-II and obesity who presents to ED complaining of abdominal pain with N/V.
Left Pyelonephritis
Severe Sepsis secondary to the above
- Admit for further evaluation and treatment.
- Patient presents with leukocytosis, tachycardia and UA consistent with infection.
- CT with stranding and ureteral dilation c/w pyelonephritis
- Aggressive IVF support.
- IV ceftriaxone pending culture data.
- F/u Blood cultures, urine cultures; urine pos for E-Coli
- Follow for clinical improvement.
Left hydronephrosis w/ perinephric fat stranding
�No clear evidence of calculus along the course of the left ureter
� May represent obstructive uropathy on the basis of a recently passed calculus versus reflux
� See plan above for pyelonephritis
� Monitor serum creatinine
� Continue IV antibiotics
� Urology on board
� No indication for repeat surgical intervention at this time
� Urology will closely follow for any changes
DM-II - Uncontrolled / Newly Diagnosed
- Recent symptoms of polyuria and polydipsia.
- Suspect degree of acute hyperglycemia secondary to infection / sepsis.
- Has not yet started any DM medications. Desires showed Ozempic as well
- Begin SSI coverage for now.
- Aggressive IVF support as noted above.
- Hemoglobin A1c 9.5
� Can restart metformin once serum creatinine appears to be stable, ready to be discharged
� Dietary consult
� Follow-up PCP outpatient after dietary modification, metformin initiation
#Hyponatremia
-most likely 2/2 to hypovolemia with sepsis
-ctm closely
#Transaminitis
-most likely secondary to sepsis
� No right upper quadrant tenderness
- CT imaging with no acute findings of the gallbladder except for cholelithiasis
� Follow-up right upper quadrant sono
Benign Hypertension
- BP elevated likely in part due to acute pain, etc.
- Continue current amlodipine with holding parameters.
Hypomagnesemia
� Monitor and replete
MASLD
- Chronically abnormal LFTs - unchanged from baseline.
Factor V Leiden
DVT Prophylaxis
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
- Subcut heparin for prophylaxis.
Code Status: Full
Anticipated Discharge: > 48 hours
Subjective/Interval History
-
Date of Service: October 30, 2024
febrile last night
Objective Data
-
Labs:
Laboratory Results
10/30/24
08:55
WBC 13.4 H
Hgb 12.4
Hct 35.3 L
Plt Count 176
Sodium 131 L
Potassium 3.8
Chloride 102
Carbon Dioxide 18 L
BUN 13
Creatinine 0.5 L
Glucose 255 H
Calcium 8.7
Total Bilirubin 1.1
AST 37 H
ALT 42 H
Alkaline Phosphatase 106
Vital Signs:
Vital Signs
Temp Pulse Resp BP Pulse Ox
98.8 F 104 20 117/79 94
10/30/24 11:28 10/30/24 11:28 10/30/24 11:28 10/30/24 11:28 10/30/24 11:28
I&O
10/29/24 10/30/24 10/31/24
06:59 06:59 06:59
Intake Total 1740 / 1740 960 / 960
Output Total 200 / 200 700 / 700
Balance 1540 / 1540 260 / 260
Review of Systems
-
History Source: Patient
All other systems: Not reviewed unless documented
Data Reviewed
-
Diagnostic Radiology: Report Reviewed by me
Medical Tests (Nuc Med, Echo etc): Image personally visualized and interpreted
Labs: Labs Reviewed by me
[2024-10-30] MEDS: NOVOLOG FLEXPEN-MODERATE RESISTANCE 5 UNITS SC ×2 (14:01→18:32)
[2024-10-30 16:43] LABS: Glucose - Point of Care 257 mg/dl (70-99)
[2024-10-30] MEDS: NSS IV (18:25)
[2024-10-30 21:22] LABS: Glucose - Point of Care 273 mg/dl (70-99)
[2024-10-30] MEDS: ROCEPHIN 1000 MG IV (23:12)
[2024-10-30] MEDS: STERILE WATER FOR INJECTION 10 ML IV (23:12)
[2024-10-31] MEDS: HEPARIN SC ×4 (00:32→22:19)
[2024-10-31 03:08] VITALS: BP 118/65
[2024-10-31 06:00] VITALS: BMI 45.8
[2024-10-31 06:36] LABS: Glucose - Point of Care 203 mg/dl (70-99)
[2024-10-31] MEDS: NOVOLOG FLEXPEN-MODERATE RESISTANCE 3 UNITS SC ×2 (06:43→13:34)
[2024-10-31 07:57] VITALS: BP 159/66
[2024-10-31 08:20] LABS: Hematocrit 32.7 % (37.0-47.0); Hemoglobin 11.5 g/dL (12.0-16.0); Mean Corp Hgb Conc. 35.2 g/dL (33.0-37.0); Mean Corpuscular Volume 93.7 fL (81.0-99.0); Mean Platelet Volume 9.4 fL (7.4-10.4); Platelet Count 168 10^3/uL (130-400); Red Blood Cell Count 3.49 10^6/uL (4.20-5.40); White Blood Cell Count 7.7 10^3/uL (4.8-10.8)
[2024-10-31 09:01] LABS: ALT (SGPT) 44 U/L (0-35); AST (SGOT) 40 U/L (14-36); Albumin 3.2 g/dl (3.5-5.0); Alkaline Phosphatase 97 U/L (38-126); Blood Urea Nitrogen 11 mg/dl (7-17); Calcium 8.4 mg/dl (8.4-10.2); Carbon Dioxide 18 mmol/L (22-30); Chloride 105 mmol/L (98-107); Estimated Creatinine Clearance > 125 ml/min; Glucose 210 mg/dl (70-99); Potassium 3.9 mmol/L (3.5-5.1); Sodium 135 mmol/L (135-145); Total Bilirubin 0.8 mg/dl (0.2-1.3); Total Protein 5.8 g/dl (6.3-8.2); eGFR > 60.00
[2024-10-31] MEDS: NSS (PRESERVATIVE FREE) IV (10:06)
[2024-10-31] MEDS: NORVASC 5 MG PO (10:06)
[2024-10-31] MEDS: PROTONIX IV IV (10:06)
[2024-10-31] MEDS: FLOMAX 0.4 MG PO (10:06)
[2024-10-31] MEDS: PROTONIX IV 40 MG IV (10:51)
[2024-10-31] MEDS: NSS (PRESERVATIVE FREE) 10 ML IV (10:51)
[2024-10-31] MEDS: LASIX 20 MG PO (11:52)
[2024-10-31 11:53] VITALS: BP 144/78
--- NOTE | 2024-10-31 11:58 | W.PN.URO.CBU ---
Today's Communication / Plan
-
Continue antibiotics
Outpatient urology follow up after discharge
Assessment / Plan
-
59F with Left renal colic/abdominal pain, Leukocytosis
Mild left renal collecting system and ureteral dilatation w/ perinephric fat stranding
UTI - ascending infection indicative of left pyelonephritis
- Possible passage of a small kidney stone or other low grade obstruction
- Repeat imaging on abd US 10/31 shows resolution of mild L hydronephrosis
- Resolved leukocytosis and now asymptomatic without renal colic
- No intervention indicated
- Continue abx for presumed ascending UTI/pyelonephritis
- Napier-sensitive E coli on urine culture - can narrow to PO abx course for total 10-14 days for complicated UTI
- Outpatient follow up with Dr. Hogan
Diagnosis
-
Date of Service: October 31, 2024
-
Patient Diagnosis:
Left renal colic
Leukocytosis
Mild left renal collecting system and ureteral dilatation w/ perinephric fat stranding
UTI - ascending infection indicative of left pyelonephritis
Subjective
-
Feeling much better today
No flank or abdominal pain
Objective
-
Vital Signs
Temp Pulse Resp BP Pulse Ox
98.6 F 99 19 159/66 92
10/31/24 07:57 10/31/24 07:57 10/31/24 07:57 10/31/24 07:57 10/31/24 07:57
Intake and Output
10/30/24 10/31/24 11/01/24
06:59 06:59 06:59
Intake Total 960 / 960 2310 / 2310 400 / 400
Output Total 700 / 700 600 / 600 600 / 600
Balance 260 / 260 1710 / 1710 -200 / -200
Intake:
Oral fluids 360 / 360 810 / 810 400 / 400
IV fluids (Total) 600 / 600 1500 / 1500
Output:
Urine, Voided 700 / 700 600 / 600 600 / 600
Other:
Number of approximated MODERATE 2 1
amounts of urine
Laboratory Results
10/31/24 06:59
10/31/24 06:59
Physical Exam
-
General - well developed, well nourished, no acute distress
Chest - clear resp
Abdomen - soft, non-tender
[2024-10-31 13:33] LABS: Glucose - Point of Care 205 mg/dl (70-99)
--- NOTE | 2024-10-31 14:30 | W.PN.HOSP.TC ---
Today's Communication/Plan
-
Ensure fever free for 24 hours
Antibiotics
Follow-up final cultures
Stop fluids
Assessment / Plan
Assessment / Plan
Physical Exam
General: Other (59y F in mild distress due to pain.)
HEENT: Other (Dry MM. Thick neck.)
Respiratory: Clear; No Wheezes, Rales or Rhonchi
Cardiac: S1/S2 and Tachycardia; No Murmur
GI: Other (Obese, mild LLQ tenderness without rebound / guarding.)
Genito-urinary: Costovertebral angle tend (Left.)
Musculoskeletal: No Clubbing, No Cyanosis and No Edema
Neuro: AO x 3
A/P: Patient is a 59y F with PMH significant for nephrolithiasis, DM-II and obesity who presents to ED complaining of abdominal pain with N/V.
Left Pyelonephritis
Severe Sepsis secondary to the above
- Admit for further evaluation and treatment.
- Patient presents with leukocytosis, tachycardia and UA consistent with infection.
- CT with stranding and ureteral dilation c/w pyelonephritis
- Can stop IVF
- IV ceftriaxone pending culture data.
- F/u Blood cultures, urine cultures; urine pos for E-Coli
- Follow for clinical improvement.
Left hydronephrosis w/ perinephric fat stranding
�No clear evidence of calculus along the course of the left ureter
� May represent obstructive uropathy on the basis of a recently passed calculus versus reflux
� See plan above for pyelonephritis
� Monitor serum creatinine
� Continue IV antibiotics
� Urology on board - f/u outpatient urology
� No indication for repeat surgical intervention at this time
� Urology will closely follow for any changes
DM-II - Uncontrolled / Newly Diagnosed
- Recent symptoms of polyuria and polydipsia.
- Suspect degree of acute hyperglycemia secondary to infection / sepsis.
- Has not yet started any DM medications. Desires showed Ozempic as well
- Begin SSI coverage for now.
- Hemoglobin A1c 9.5
� Can restart metformin once serum creatinine appears to be stable, ready to be discharged
� Dietary consult
� Follow-up PCP outpatient after dietary modification, metformin initiation
#Hyponatremia
-most likely 2/2 to hypovolemia with sepsis
-ctm closely
#Transaminitis
-most likely secondary to sepsis
� No right upper quadrant tenderness
- CT imaging with no acute findings of the gallbladder except for cholelithiasis
� Hide requiring sono, cholelithiasis, hepatic steatosis, no evidence of acute cholecystitis.
Benign Hypertension
- BP elevated likely in part due to acute pain, etc.
- Continue current amlodipine with holding parameters.
Hypomagnesemia
� Monitor and replete
MASLD
- Chronically abnormal LFTs - unchanged from baseline.
Factor V Leiden
DVT Prophylaxis
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
- Subcut heparin for prophylaxis.
Edema
� Secondary to aggressive volume/resuscitation
� Small dose p.o. Lasix today
Code Status: Full
Anticipated Discharge: Within 24 hours
Subjective/Interval History
-
Date of Service: October 31, 2024
edema of LE
Objective Data
-
Labs:
Laboratory Results
10/31/24
06:59
WBC 7.7
Hgb 11.5 L
Hct 32.7 L
Plt Count 168
Sodium 135
Potassium 3.9
Chloride 105
Carbon Dioxide 18 L
BUN 11
Creatinine 0.5 L
Glucose 210 H
Calcium 8.4
Total Bilirubin 0.8
AST 40 H
ALT 44 H
Alkaline Phosphatase 97
Vital Signs:
Vital Signs
Temp Pulse Resp BP Pulse Ox
98.7 F 106 20 144/78 93
10/31/24 11:53 10/31/24 11:53 10/31/24 11:53 10/31/24 11:53 10/31/24 11:53
I&O
10/30/24 10/31/24 11/01/24
06:59 06:59 06:59
Intake Total 960 / 960 2310 / 2310 400 / 400
Output Total 700 / 700 600 / 600 600 / 600
Balance 260 / 260 1710 / 1710 -200 / -200
Review of Systems
-
History Source: Patient
All other systems: Not reviewed unless documented
Data Reviewed
-
Diagnostic Radiology: Report Reviewed by me
Medical Tests (Nuc Med, Echo etc): Image personally visualized and interpreted
Labs: Labs Reviewed by me
[2024-10-31 15:08] VITALS: BP 127/65
[2024-10-31 17:05] LABS: Glucose - Point of Care 166 mg/dl (70-99)
[2024-10-31] MEDS: NOVOLOG FLEXPEN-MODERATE RESISTANCE 1 UNITS SC (18:40)
[2024-10-31 19:00] VITALS: BP 132/64
[2024-10-31 22:05] LABS: Glucose - Point of Care 206 mg/dl (70-99)
[2024-10-31 23:00] VITALS: BP 141/79
[2024-10-31] MEDS: STERILE WATER FOR INJECTION 10 ML IV (23:31)
[2024-10-31] MEDS: ROCEPHIN 1000 MG IV (23:31)
[2024-10-31] MEDS: TORADOL 15 MG IV (23:48)
[2024-10-31] MEDS: TYLENOL 650 MG PO (23:48)
[2024-11-01 03:00] VITALS: BP 129/65
[2024-11-01 06:00] VITALS: BMI 44.9
[2024-11-01 06:04] LABS: Hematocrit 32.9 % (37.0-47.0); Hemoglobin 11.5 g/dL (12.0-16.0); Mean Corpuscular Hgb 32.9 pg (27.0-31.0); Platelet Count 187 10^3/uL (130-400); Red Cell Dist. Width 11.9 % (11.5-14.5)
[2024-11-01 06:42] LABS: ALT (SGPT) 48 U/L (0-35); AST (SGOT) 42 U/L (14-36); Albumin 3.1 g/dl (3.5-5.0); Alkaline Phosphatase 91 U/L (38-126); Blood Urea Nitrogen 9 mg/dl (7-17); Calcium 8.5 mg/dl (8.4-10.2); Carbon Dioxide 25 mmol/L (22-30); Chloride 104 mmol/L (98-107); Estimated Creatinine Clearance > 125 ml/min; Glucose 175 mg/dl (70-99); Potassium 3.7 mmol/L (3.5-5.1); Sodium 137 mmol/L (135-145); Total Bilirubin 0.6 mg/dl (0.2-1.3); Total Protein 5.7 g/dl (6.3-8.2); eGFR > 60.00
[2024-11-01 07:30] VITALS: BP 149/85
[2024-11-01 07:40] LABS: Glucose - Point of Care 155 mg/dl (70-99)
[2024-11-01] MEDS: HEPARIN SC (08:03)
[2024-11-01] MEDS: NORVASC 5 MG PO (08:36)
[2024-11-01] MEDS: FLOMAX 0.4 MG PO (08:36)
[2024-11-01] MEDS: NOVOLOG FLEXPEN-MODERATE RESISTANCE 1 UNITS SC (09:55)
--- NOTE | 2024-11-01 11:59 | W.PN.HOSP.TC ---
Addendum entered and electronically signed by Alvaro Woo MD 11/04/24 16:12:
[id number]
Original Note:
Today's Communication/Plan
-
complete cefdinir course for total 14 days
f/u cmp outpatient
F/u PCP, urology oupt
Assessment / Plan
Assessment / Plan
Physical Exam
General: Other (59y F in mild distress due to pain.)
HEENT: Other (Dry MM. Thick neck.)
Respiratory: Clear; No Wheezes, Rales or Rhonchi
Cardiac: S1/S2 and Tachycardia; No Murmur
GI: Other (Obese, mild LLQ tenderness without rebound / guarding.)
Genito-urinary: Costovertebral angle tend (Left.)
Musculoskeletal: No Clubbing, No Cyanosis and No Edema
Neuro: AO x 3
A/P: Patient is a 59y F with PMH significant for nephrolithiasis, DM-II and obesity who presents to ED complaining of abdominal pain with N/V.
Left Pyelonephritis
Severe Sepsis secondary to the above
E. coli
- Admit for further evaluation and treatment.
- Patient presents with leukocytosis, tachycardia and UA consistent with infection.
- CT with stranding and ureteral dilation c/w pyelonephritis
- Can stop IVF
- IV ceftriaxone�switch to cefdinir to complete 14-day course total
- urine pos for E-Coli
- Follow for clinical improvement.
Left hydronephrosis w/ perinephric fat stranding
�No clear evidence of calculus along the course of the left ureter
� May represent obstructive uropathy on the basis of a recently passed calculus versus reflux
� See plan above for pyelonephritis
� Monitor serum creatinine
� Continue IV antibiotics
� Urology on board - f/u outpatient urology
� No indication for repeat surgical intervention at this time
� Urology will closely follow for any changes
DM-II - Uncontrolled / Newly Diagnosed
- Recent symptoms of polyuria and polydipsia.
- Suspect degree of acute hyperglycemia secondary to infection / sepsis.
- Has not yet started any DM medications. Desires showed Ozempic as well
- Begin SSI coverage for now.
- Hemoglobin A1c 9.5
� Can restart metformin once serum creatinine appears to be stable, ready to be discharged
� Dietary consult
� Follow-up PCP outpatient after dietary modification, metformin initiation
#Hyponatremia
-most likely 2/2 to hypovolemia with sepsis
-ctm closely
#Transaminitis
-most likely secondary to sepsis
� No right upper quadrant tenderness
- CT imaging with no acute findings of the gallbladder except for cholelithiasis
� Hide requiring sono, cholelithiasis, hepatic steatosis, no evidence of acute cholecystitis.
�Follow-up outpatient
Benign Hypertension
- BP elevated likely in part due to acute pain, etc.
- Continue current amlodipine with holding parameters.
Hypomagnesemia
� Monitor and replete
MASLD
- Chronically abnormal LFTs - unchanged from baseline.
Factor V Leiden
DVT Prophylaxis
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
- Subcut heparin for prophylaxis.
Edema
� Secondary to aggressive volume/resuscitation
� Status post Lasix
Code Status: Full
More than 30 minutes spent in discharge including
Final examination of the patient
Summarizing hospital stay
Instructions for continuing care to all relevant caregivers
Preparation of discharge records, prescriptions, and referral forms
Total time spent (36 in minutes):
Anticipated Discharge: Today
Subjective/Interval History
-
Date of Service: November 01, 2024
feels better
Objective Data
-
Labs:
Laboratory Results
11/01/24
05:29
WBC 7.0
Hgb 11.5 L
Hct 32.9 L
Plt Count 187
Sodium 137
Potassium 3.7
Chloride 104
Carbon Dioxide 25
BUN 9
Creatinine 0.5 L
Glucose 175 H
Calcium 8.5
Total Bilirubin 0.6
AST 42 H
ALT 48 H
Alkaline Phosphatase 91
Vital Signs:
Vital Signs
Temp Pulse Resp BP Pulse Ox
98.6 F 89 17 149/85 95
11/01/24 07:30 11/01/24 07:30 11/01/24 07:30 11/01/24 07:30 11/01/24 07:30
I&O
10/31/24 11/01/24 11/02/24
06:59 06:59 06:59
Intake Total 2310 / 2310 1120 / 1120
Output Total 600 / 600 1800 / 1800
Balance 1710 / 1710 -680 / -680
Review of Systems
-
History Source: Patient
All other systems: Not reviewed unless documented
Data Reviewed
-
Diagnostic Radiology: Report Reviewed by me
Medical Tests (Nuc Med, Echo etc): Image personally visualized and interpreted
Labs: Labs Reviewed by me
--- NOTE | 2024-11-01 12:15 | W.DS.TRANS ---
DC Summary - [employer]
-
Discharge Instructions:
Discharge Diagnosis/Procedures Pyelonephritis
Severe sepsis
Diet Diabetic, Carb Controlled,Low Cholesterol,Low
Fat
Activity As tolerated
Blood Work CMP in 1 week
Instructions:
Stand-Alone Forms:
Changes to Home Medications: Yes
Discharge Medications:
DC Medications w/original date entered in [email or web address]
atorvastatin 20 mg tablet 20 mg PO DAILY High Cholesterol 10/28/24
cholecalciferol (vitamin D3) 50 mcg (2,000 unit) tablet 50 mcg PO DAILY Supplement 10/28/24
magnesium 250 mg tablet 250 mg PO DAILY Supplement 10/28/24
ascorbic acid (vitamin C) 500 mg chewable tablet (Vitamin C) 1,500 mg PO DAILY Supplement 10/29/24
docusate sodium 100 mg capsule (Colace) 300 mg PO HS Constipation 10/29/24
losartan 50 mg tablet 50 mg PO HS Blood Pressure 10/29/24
therapeutic multivitamin 2 tab PO DAILY Supplement 10/29/24
amlodipine 5 mg tablet 5 mg PO DAILY #0 tabs 11/01/24
cefdinir 300 mg capsule 300 mg PO BID 11 days #22 caps 11/01/24
tamsulosin 0.4 mg capsule 0.4 mg PO DAILY 30 days #30 caps 11/01/24
Home Medication Changes
cefdinir 300 mg capsule 300 mg PO BID 11 days #22 caps 11/01/24
tamsulosin 0.4 mg capsule 0.4 mg PO DAILY 30 days #30 caps 11/01/24
Pending Results: No
--- NOTE | 2024-11-01 13:00 | CM ---
MD entered order for discharge.
Spoke with pt she said she was ready for discharge.
Her Gonzalo will drive her home.
Offered VN she declined need.
PLAN Home no needs
[2024-11-01 13:06] LABS: Glucose - Point of Care 204 mg/dl (70-99)
[2024-11-01] MEDS: NOVOLOG FLEXPEN-MODERATE RESISTANCE 3 UNITS SC (13:07)
[2024-11-01 14:45] VITALS: BP 144/91
== END 2024-11-01 15:31 | disposition home or self-care (01) | DRG 872 ==
LOC: 3 WEST ACU 23:59
PROVIDERS: Clinical Nurse Specialist Family Health; Emergency Medicine; ADMITTING PHYSICIAN Hospitalist; ATTENDING PHYSICIAN Internal Medicine; EMERGENCY PHYSICIAN Student in an Organized Health Care Education/Training Program; FAMILY PHYSICIAN Internal Medicine
DX: A41.9 Sepsis, unspecified organism (principal); N12 Tubulo-interstitial nephritis, not specified as acute or chronic; D68.51 Activated protein C resistance; Z68.41 Body mass index [BMI] 40.0-44.9, adult; E87.1 Hypo-osmolality and hyponatremia; R65.20 Severe sepsis without septic shock; B96.20 Unspecified Escherichia coli [E. coli] as the cause of diseases classified elsewhere; E66.01 Morbid (severe) obesity due to excess calories; I10 Essential (primary) hypertension; E11.65 Type 2 diabetes mellitus with hyperglycemia; T38.3X6A Underdosing of insulin and oral hypoglycemic [antidiabetic] drugs, initial encounter; Z91.138 Patient's unintentional underdosing of medication regimen for other reason; Z79.84 Long term (current) use of oral hypoglycemic drugs; Z87.442 Personal history of urinary calculi
CPT/HCPCS: 74018; 74177; 76700; 80048; 80053; 81003; 81015; 82962; 83036; 83605; 83690; 83735; 84443; 85025; 85027; 87040; 87077; 87086; 87186; 87502; 87811; 93005; 96361; 96374; 96375; 99285; Q9967